=== PATIENT | female | born 1965 | race African-American/Black ===

== ENCOUNTER 2017-11-27 13:12 | Emergency (ER) | payer MEDICARE, MEDICAID ==
[~2017-11-27] VITALS: Ht 172.7 cm; Wt 93.0 kg
[2017-11-27 13:38] VITALS: BP 140/77
== END 2017-11-27 17:49 | disposition home or self-care (01) ==
LOC: ER 13:46
DX: M54.2 Cervicalgia (principal); M79.662 Pain in left lower leg; M54.6 Pain in thoracic spine; W18.39XA Other fall on same level, initial encounter; Y93.89 Activity, other specified; Y92.89 Other specified places as the place of occurrence of the external cause; Y99.8 Other external cause status
CPT/HCPCS: 99282

== ENCOUNTER 2018-05-07 15:45 | Emergency (ER) | payer MEDICARE, MEDICAID | END 2018-05-07 19:24 | disposition left against medical advice (07) | LOC: ER 15:50 | DX: R68.89 Other general symptoms and signs (principal); Z53.21 Procedure and treatment not carried out due to patient leaving prior to being seen by health care provider ==

== ENCOUNTER 2024-11-28 13:19 | Emergency (ER) | payer MEDICARE, MEDICAID ==
[~2024-11-28] VITALS: Ht 170.2 cm; Wt 108.0 kg
[2024-11-28 13:39] VITALS: O2SAT 99
[2024-11-28] MEDS: ACETAMINOPHEN 325MG TABLET PO ONE (14:43)
[2024-11-28 15:40] LABS: BASOPHILS % 0.6 % (0.0-2.0); EOSINOPHILS % 5.1 % (0.0-5.0); HEMATOCRIT. 40.5 % (36.0-48.0); HEMOGLOBIN. 12.7 g/dL (12.0-16.0); LYMPHOCYTES % 27.6 % (20.0-50.0); MEAN PLATELET VOLUME 11.2 fl (7.4-10.4); MONOCYTES % 7.4 % (2.0-8.0); NEUTROPHILS % 59.3 % (40.0-76.0); PLATELET 143 x1000/uL (130-400); RED BLOOD CELL COUNT 4.68 mill/uL (4.2-5.4); RED CELL DISTRIBUTION WIDTH 14.7 % (11.6-14.6)
[2024-11-28 15:55] LABS: CREATININE 0.9 mg/dL (0.6-1.0)
[2024-11-28 15:56] LABS: TROPONIN I HIGH SENSITIVITY < 4 ng/L (3.0-34); UREA NITROGEN BLOOD 8 mg/dL (9-23)
[2024-11-28 15:57] LABS: ASPARTATE AMINOTRANSFERASE 15 IU/L (<34)
[2024-11-28 15:58] LABS: BILIRUBIN DIRECT 0.1 mg/dL (<=3.0); BILIRUBIN TOTAL 0.5 mg/dL (0.1-1.0); PROTEIN TOTAL 6.5 g/dL (6.0-8.3)
[2024-11-28] MEDS ORDERED: NAPR-681 MT (16:15)
[2024-11-28 16:48] VITALS: BP 126/98; PULSE 95; RESP 18; TEMP 36.7; O2SAT 100
== END 2024-11-28 16:52 | disposition home or self-care (01) ==
LOC: ER 13:19
DX: R07.9 Chest pain, unspecified (principal); R06.02 Shortness of breath; J45.909 Unspecified asthma, uncomplicated
CPT/HCPCS: 36415; 71045; 80048; 80076; 83880; 84484; 85025; 85379; 93005; 99285